=== PATIENT | male | born 1965 | race Caucasian/White ===

== ENCOUNTER 2016-09-29 12:04 | Emergency (ER) | payer SELFPAY ==
[2016-09-29] MEDS ORDERED: Sodium Chloride 0.9% 10 ML Syringe FLUSH PRN (12:17)
[2016-09-29] MEDS ORDERED: Aspirin 81 MG Tab.Chew PO ONE (12:17)
[2016-09-29] MEDS ORDERED: Tenecteplase 50 MG Kit ONE (12:36)
[2016-09-29] MEDS ORDERED: Heparin Sodium 5,000 Units/ML Vial IVPUSH ONE (12:39)
[2016-09-29] MEDS ORDERED: Morphine 2 MG/ML Syringe IVPUSH ONE (12:41)
[2016-09-29] MEDS ORDERED: Heparin Sodium/D5W 25,000 UNITS/500 ML BAG IV SCH (12:45)
[2016-09-29] MEDS ORDERED: Tenecteplase 50 MG Kit IV ONE (12:46)
--- NOTE | 2016-09-29 12:48 | EDM.PDOC ---
ED HPI GENERAL MEDICAL PROBLEM - General Chief Complaint: Respiratory Problem Stated Complaint: SOB Time Seen by Provider: 09/29/16 12:09 Source of Information: Reports: Patient History Limitations: Reports: No Limitations - History of Present Illness INITIAL COMMENTS - FREE TEXT/NARRATIVE: The patient presents with shortness of breath and chest tightness. This all started yesterday. It would come and go but today just prior to arriving at the ER. The pain was constant and he got lightheaded and nearly passed out. He has 7/10 pain now. He has no history of heart problems. He does smoke. He has no history of HTN, hypercholesterolemia, or diabetes. He denies fever, chills or cough. Onset: Gradual Duration: Day(s): (Yesterday on and off but constant now) Location: Reports: Chest Quality: Reports: Other (Tightness) Severity: Moderate Improves with: Reports: None Worsens with: Reports: None Associated Symptoms: Reports: Chest Pain, Shortness of Breath. Denies: Cough, Fever/Chills, Nausea/Vomiting Chest Pain Score (Numeric/FACES): 8 - Related Data Allergies Allergy/AdvReac Type Severity Reaction Status Date / Time Penicillins Allergy Other Verified 09/29/16 12:13 Home Meds: Home Meds . [Unable to Verify Home Med List] 09/29/16 [History] Past Medical History - Past Health History Medical/Surgical History: Denies Medical/Surgical History Social & Family History - Tobacco Use Smoking Status *Q: Current Every Day Smoker Years of Tobacco use: 35 Packs/Tins Daily: 1 - Caffeine Use Caffeine Use: Reports: Coffee, Soda - Recreational Drug Use Recreational Drug Use: No ED ROS GENERAL - Review of Systems Review Of Systems: See Below Constitutional: Reports: No Symptoms HEENT: Reports: No Symptoms Respiratory: Reports: Shortness of Breath Cardiovascular: Reports: Chest Pain Endocrine: Reports: No Symptoms GI/Abdominal: Reports: No Symptoms : Reports: No Symptoms Musculoskeletal: Reports: No Symptoms Skin: Reports: No Symptoms Neurological: Reports: No Symptoms ED EXAM, GENERAL - Physical Exam Exam: See Below Exam Limited By: No Limitations General Appearance: Alert, No Apparent Distress Ears: Normal External Exam Nose: Normal Inspection Head: Atraumatic, Normocephalic Neck: Normal Inspection Respiratory/Chest: No Respiratory Distress, Lungs Clear, Normal Breath Sounds Cardiovascular: Regular Rate, Rhythm, No Edema, No Murmur GI/Abdominal: Soft, Non-Tender, No Organomegaly, No Mass Back Exam: Normal Inspection EKG INTERPRETATION EKG Date: 09/29/16 Time: 12:26 Rhythm: other (sinus bradycardia) Rate (beats/min): 51 [place]: normal P-wave: present QRS: normal ST-T: elevated (inferior leads with depression in the anterior leads) QT: normal Course - Vital Signs Last Recorded V/S: Last Vital Signs Temp 96.3 F 09/29/16 12:09 Pulse 53 L 09/29/16 12:09 Resp 18 09/29/16 12:09 BP 152/92 H 09/29/16 12:09 Pulse Ox 100 09/29/16 12:09 - Orders/Labs/Meds Orders: Active Orders 24 hr Category Date Time Status Cardiac Monitoring [RC] . DIRECTED Care 09/29/16 12:17 Active EKG Documentation Completion [RC] STAT Care 09/29/16 12:18 Active Oxygen Therapy [RC] PRN Care 09/29/16 12:17 Active Peripheral IV Care [RC] . DIRECTED Care 09/29/16 12:18 Active Chest 1V Frontal [CR] Stat Exams 09/29/16 12:18 Taken CBC W/O DIFF,HEMOGRAM [HEME] MOTH@0700 Lab 09/30/16 07:00 Ordered CBC W/O DIFF,HEMOGRAM [HEME] MOTH@0700 Lab 10/03/16 07:00 Ordered CBC W/O DIFF,HEMOGRAM [HEME] MOTH@0700 Lab 10/07/16 07:00 Ordered CBC W/O DIFF,HEMOGRAM [HEME] MOTH@0700 Lab 10/10/16 07:00 Ordered CBC W/O DIFF,HEMOGRAM [HEME] MOTH@0700 Lab 10/14/16 07:00 Ordered CBC W/O DIFF,HEMOGRAM [HEME] MOTH@0700 Lab 10/17/16 07:00 Ordered D-DIMER QUANTITATIVE [COAG] Stat Lab 09/29/16 12:25 Received Heparin Sodium/D5W [Heparin 25,000 Units in D5W 500 ML] Med 09/29/16 12:45 Active 25,000 units in 500 ml IV TITRATE Sodium Chloride 0.9% [Saline Flush] Med 09/29/16 12:17 Active 10 ml FLUSH ASDIRECTED PRN Peripheral IV Insertion Adult [OM.PC] Stat Oth 09/29/16 12:17 Ordered Medication Orders Heparin Sodium/Dextrose (Heparin 25,000 Units In D5w 500 Ml) 25,000 units in 500 mls @ 19.051 mls/hr IV TITRATE DANIEL; 15 UNITS/KG/HR PRN Reason: Protocol Sodium Chloride (Saline Flush) 10 ml FLUSH ASDIRECTED PRN PRN Reason: Keep Vein Open Last Admin: 09/29/16 12:49 Dose: 10 ml Labs: Laboratory Tests 09/29/16 09/29/16 Range/Units 12:25 12:25 WBC 13.93 H (4.23-9.07) K/mm3 RBC 5.53 (4.63-6.08) M/mm3 Hgb 17.0 (13.7-17.5) gm/L Hct 51.0 (40.1-51.0) % MCV 92.2 (79.0-92.2) fl MCH 30.7 (25.7-32.2) pg MCHC 33.3 (32.2-35.5) g/dl RDW Std Deviation 48.2 H (35.1-43.9) fL Plt Count 342 H (163-337) K/mm3 MPV 9.2 L (9.4-12.3) fl Neut % (Auto) 63.1 (34.0-67.9) % Lymph % (Auto) 26.2 (21.8-53.1) % [place] % (Auto) 7.5 (5.3-12.2) % Eos % (Auto) 2.2 (0.8-7.0) Baso % (Auto) 0.6 (0.1-1.2) % Neut # (Auto) 8.80 H (1.78-5.38) K/mm3 Lymph # (Auto) 3.65 H (1.32-3.57) K/mm3 [place] # (Auto) 1.05 H (0.30-0.82) K/mm3 Eos # (Auto) 0.30 (0.04-0.54) K/mm3 Baso # (Auto) 0.08 (0.01-0.08) K/mm3 Sodium 145 (136-145) mEq/L Potassium 4.0 (3.5-5.1) mEq/L Chloride 107 (98-107) mEq/L Carbon Dioxide 29 (21-32) mEq/L Anion Gap 13.0 (5-15) BUN 12 (7-18) mg/dL Creatinine 1.2 (0.7-1.3) mg/dL Est Cr Clr Drug Dosing 64.77 mL/min Estimated GFR (MDRD) > 60 (>60) mL/min BUN/Creatinine Ratio 10.0 L (14-18) Glucose 131 H (74-106) mg/dL Calcium 8.8 (8.5-10.1) mg/dL Total Bilirubin 0.3 (0.2-1.0) mg/dL AST 31 (15-37) U/L ALT 32 (16-63) U/L Alkaline Phosphatase 46 (46-116) U/L Troponin I 0.806 H* (0.00-0.056) ng/mL Total Protein 7.8 (6.4-8.2) g/dl Albumin 4.0 (3.4-5.0) g/dl Globulin 3.8 gm/dL Albumin/Globulin Ratio 1.1 (1-2) Meds: Medications Generic Name Dose Route Start Last Admin Trade Name Freq PRN Reason Stop Dose Admin Heparin Sodium/Dextrose 25,000 units in 500 mls @ 19.051 mls/hr 09/29/16 12: 45 Heparin 25,000 Units In D5w 500 Ml IV TITRATE DANIEL Protocol 15 UNITS/KG/HR Sodium Chloride 10 ml 09/29/16 12:17 09/29/16 12:49 Saline Flush FLUSH 10 ml ASDIRECTED PRN Administration Keep Vein Open Discontinued Medications Generic Name Dose Route Start Last Admin Trade Name Freq PRN Reason Stop Dose Admin Aspirin 324 mg 09/29/16 12:17 09/29/16 12:43 Aspirin PO 09/29/16 12:18 324 mg ONETIME ONE Administration Heparin Sodium (Porcine) 5,000 units 09/29/16 12:39 Heparin Sodium IVPUSH 09/29/16 12:40 ONETIME ONE Morphine Sulfate 2 mg 09/29/16 12:41 Morphine IVPUSH 09/29/16 12:42 ONETIME ONE Tenecteplase Confirm 09/29/16 12:36 Tnkase Administered 09/29/16 12:37 Dose 50 mg .ROUTE .[facility] - Re-Assessments/Exams Free Text/Narrative Re-Assessment/Exam: 09/29/16 12:52 His EKG shows a STEMI in the inferior leads with reciprocal changes in the anterior leads. I ordered an IV saline lock, TnKase per weight based protocol, heparin bolus and heparin drip and morphine 2mg IV. He also got aspirin on arrival 324mg. I did not order nitro at this time. 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 His CXR looks good. I called [facility] in [place] and Dr Lynn accepted the patient. 09/29/16 13:05 His WBC is elevated at 13.93. His D-dimer is negative. His troponin is elevated at 0.806. Departure - Departure Time of Disposition: 13:10 Disposition: DC/Tfer to Acute Hospital 02 Condition: serious Clinical Impression: STEMI (ST elevation myocardial infarction) Qualifiers: Involved coronary artery: right coronary artery Qualified Code(s): I21.11 - ST elevation (STEMI) myocardial infarction involving right coronary artery - Discharge Information Forms: ED Department Discharge - My Orders Last 24 Hours: My Active Orders 09/29/16 12:17 Cardiac Monitoring [RC] . DIRECTED Oxygen Therapy [RC] PRN Sodium Chloride 0.9% [Saline Flush] 10 ml FLUSH ASDIRECTED PRN Peripheral IV Insertion Adult [OM.PC] Stat 09/29/16 12:18 EKG Documentation Completion [RC] STAT Peripheral IV Care [RC] . DIRECTED Chest 1V Frontal [CR] Stat 09/29/16 12:25 D-DIMER QUANTITATIVE [COAG] Stat 09/29/16 12:45 Heparin Sodium/D5W [Heparin 25,000 Units in D5W 500 ML] 25,000 units in 500 ml IV TITRATE 09/30/16 07:00 CBC W/O DIFF,HEMOGRAM [HEME] MOTH@69910/03/16 07:00 CBC W/O DIFF,HEMOGRAM [HEME] MOTH@69910/07/16 07:00 CBC W/O DIFF,HEMOGRAM [HEME] MOTH@69910/10/16 07:00 CBC W/O DIFF,HEMOGRAM [HEME] MOTH@69910/14/16 07:00 CBC W/O DIFF,HEMOGRAM [HEME] MOTH@0700 10/17/16 07:00 CBC W/O DIFF,HEMOGRAM [HEME] MOTH@0700 - Assessment/Plan Last 24 Hours: My Active Orders 09/29/16 12:17 Cardiac Monitoring [RC] . DIRECTED Oxygen Therapy [RC] PRN Sodium Chloride 0.9% [Saline Flush] 10 ml FLUSH ASDIRECTED PRN Peripheral IV Insertion Adult [OM.PC] Stat 09/29/16 12:18 EKG Documentation Completion [RC] STAT Peripheral IV Care [RC] . DIRECTED Chest 1V Frontal [CR] Stat 09/29/16 12:25 D-DIMER QUANTITATIVE [COAG] Stat 09/29/16 12:45 Heparin Sodium/D5W [Heparin 25,000 Units in D5W 500 ML] 25,000 units in 500 ml IV TITRATE 09/30/16 07:00 CBC W/O DIFF,HEMOGRAM [HEME] MOTH@0700 10/03/16 07:00 CBC W/O DIFF,HEMOGRAM [HEME] MOTH@0700 10/07/16 07:00 CBC W/O DIFF,HEMOGRAM [HEME] MOTH@0700 10/10/16 07:00 CBC W/O DIFF,HEMOGRAM [HEME] MOTH@0700 10/14/16 07:00 CBC W/O DIFF,HEMOGRAM [HEME] MOTH@0700 10/17/16 07:00 CBC W/O DIFF,HEMOGRAM [HEME] MOTH@07
[2016-09-29 14:42] VITALS: BP 127/78
--- NOTE | 2016-09-29 15:32 | CR ---
Chest: Portable view of the chest was obtained. Comparison: No previous study. Heart size and mediastinum are within normal limits. Lungs are clear. Bony structures are grossly intact. Impression: 1. Nothing acute is identified on portable chest x-ray. Diagnostic code #1
== END 2016-09-29 13:10 ==
LOC: JD.ED 12:04
DX: I21.11 ST elevation (STEMI) myocardial infarction involving right coronary artery (principal); F17.210 Nicotine dependence, cigarettes, uncomplicated; Z88.0 Allergy status to penicillin
CPT/HCPCS: 36415; 71010; 80053; 84484; 85025; 85379; 93005; 96374; 96375; 99285; A9270; J1644; J2270; J3101; J7050

== ENCOUNTER 2017-02-26 15:05 | Emergency (ER) | payer SELFPAY ==
[2017-02-26 15:20] VITALS: BP 134/74
[2017-02-26] MEDS ORDERED: Sodium Chloride 0.9% 10 ML Syringe FLUSH PRN (15:42)
[2017-02-26] MEDS ORDERED: Sodium Chloride 0.9% 1,000 ML IV SCH (15:45)
--- NOTE | 2017-02-26 16:22 | CT ---
Head CT Technique: Multiple axial sections through the brain were obtained. Intravenous contrast was not utilized. Comparison: No previous intracranial imaging. Findings: Ventricles along with basal cisterns and sulci over convexities are within normal limits for the patient's age. No abnormal parenchymal densities are seen. No evidence of intracranial hemorrhage. No midline shift or mass effect is seen. Bone window settings were reviewed which shows no acute calvarial abnormality. Visualized sinuses are clear. Impression: 1. Nothing acute is seen on noncontrast head CT study. Diagnostic code #1
--- NOTE | 2017-02-26 16:51 | EDM.PDOC ---
ED HPI GENERAL MEDICAL PROBLEM - General Chief Complaint: Eye Problems Stated Complaint: BLURRED VISION Time Seen by Provider: 02/26/17 15:35 Source of Information: Reports: Patient History Limitations: Reports: No Limitations - History of Present Illness INITIAL COMMENTS - FREE TEXT/NARRATIVE: 51-year-old male presents for evaluation treatment of blurry vision. Patient reports that the episode of blurry vision occurred about an hour prior to arrival in the ER. States the episode lasted 10 minutes. He describes the blurry vision as squiggly, wavy lines in his vision. Reports that it affected both eyes. No double vision. No curtain falling or any change in visual arciniega. He denies any headaches, weakness, change in ambulation, change in speech, numbness, tingling, lightheadedness, dizziness, chest pain, shortness of breath , nausea or vomiting. Patient reports he is not sleeping much due to his work schedule. Patient reports that he does wear glasses and then about 2 years since he has seen an eye doctor. No contacts. Patient reports when the visual changes occurred he was at work. He works in the [employer] and his job is physically demanding. Patient states that he did have an LA in September. He was sent to [place] and he had a stent placed. Currently on Plavix and Crestor. Reports he is taking these as prescribed. - Related Data Allergies Allergy/AdvReac Type Severity Reaction Status Date / Time Penicillins Allergy Other Verified 02/26/17 15:15 Home Meds: Home Meds hydrOXYzine HCl [Atarax] 50 mg PO BEDTIME PRN #12 tablet 02/26/17 [Rx] Past Medical History - Past Health History Medical/Surgical History: Denies Medical/Surgical History Cardiovascular History: Reports: High Cholesterol, LA, Stents Social & Family History - Tobacco Use Smoking Status *Q: Current Every Day Smoker Years of Tobacco use: 30 Packs/Tins Daily: 1 - Caffeine Use Caffeine Use: Reports: Coffee, Soda - Recreational Drug Use Recreational Drug Use: Yes Drug Use in Last 12 Months: No ED ROS GENERAL - Review of Systems Review Of Systems: See Below Constitutional: Reports: Fatigue. Denies: Fever HEENT: Reports: Vision Change (reports an episode of vision change for 10 minutes causing "wavy, squiggly lines"; no double vision, no visual arciniega deficit, vision change involved bothe eyes; now resolved). Denies: Contact Lenses Respiratory: Denies: Shortness of Breath Cardiovascular: Denies: Chest Pain, Lightheadedness GI/Abdominal: Denies: Nausea, Vomiting Neurological: Denies: Dizziness, Headache, Numbness, Syncope, Tingling, Trouble Speaking, Difficulty Walking, Weakness, Change in Speech, Gait Disturbance ED EXAM GENERAL W FULL EYE - Physical Exam Exam: See Below Exam Limited By: No Limitations General Appearance: Alert, WD/WN, No Apparent Distress Eye Exam: Bilateral Eye: Normal Inspection, PERRL Eyelids: Bilateral: Normal Appearance Conjunctiva & Sclera: Bilateral: Normal Appearance Cornea Exam: Bilateral: Normal Appearance Extraocular Movements: Bilateral: Intact Pupils: Normal Accommodation Pupillary Size: Bilateral: 5 mm Pupillary Reaction: Bilateral: Brisk Anterior Chamber: Bilateral: Normal Appearance Posterior Chamber: Bilateral: Normal Funduscopic Ears: Normal External Exam, Normal Canal, Hearing Grossly Normal, Normal TMs Nose: Normal Inspection Throat/Mouth: Normal Inspection, Normal Lips, Normal Voice, No Airway Compromise Head: Atraumatic, Normocephalic Neck: Normal Inspection Respiratory/Chest: No Respiratory Distress, Lungs Clear, Normal Breath Sounds Cardiovascular: Normal Peripheral Pulses, Regular Rate, Rhythm, No Murmur Neurological: Alert, Oriented, CN II-XII Intact, Normal Cognition, Normal Gait, Other (normal heel to downs testing, normal finger to nose testing, supervisor special services 5/5 bilaterally, dorsiflexion 5/5 bilaterally, plantarflexion 5/5 bilaterally) Psychiatric: Normal Affect, Normal Mood Skin Exam: Warm, Dry, Normal Color EKG INTERPRETATION EKG Date: 02/26/17 Time: 15:45 Rhythm: NSR Rate (Beats/Min): 63 [place]: Normal P-Wave: Present QRS: Normal ST-T: Normal QT: Normal EKG Interpretation Comments: NSR at 63 bpm. No acute changes. Reviewed by myself and Dr. Varela. Course - Vital Signs Last Recorded V/S: Last Vital Signs Temp 36.8 C 02/26/17 15:16 Pulse 80 02/26/17 15:16 Resp BP 134/74 02/26/17 15:16 Pulse Ox 100 02/26/17 15:16 - Orders/Labs/Meds Orders: Active Orders 24 hr Category Date Time Status Blood Glucose Check, Bedside [RC] ONETIME Care 02/26/17 15:42 Active EKG 12 Lead [EKG Documentation Completion] [RC] STAT Care 02/26/17 15:42 Active Peripheral IV Care [RC] . DIRECTED Care 02/26/17 15:42 Active Visual Acuity [Vision Test] [RC] ASDIRECTED Care 02/26/17 15:43 Active Peripheral IV Insertion Adult [OM.PC] Routine Oth 02/26/17 15:42 Ordered Labs: Laboratory Tests 02/26/17 02/26/17 02/26/17 Range/Units 16:05 16:05 16:05 WBC 7.65 (4.23-9.07) K/mm3 RBC 4.79 (4.63-6.08) M/mm3 Hgb 14.7 (13.7-17.5) gm/L Hct 44.1 (40.1-51.0) % MCV 92.1 (79.0-92.2) fl MCH 30.7 (25.7-32.2) pg MCHC 33.3 (32.2-35.5) g/dl RDW Std Deviation 45.2 H (35.1-43.9) fL Plt Count 228 (163-337) K/mm3 MPV 9.3 L (9.4-12.3) fl Neut % (Auto) 64.4 (34.0-67.9) % Lymph % (Auto) 22.9 (21.8-53.1) % [place] % (Auto) 8.8 (5.3-12.2) % Eos % (Auto) 3.0 (0.8-7.0) Baso % (Auto) 0.8 (0.1-1.2) % Neut # (Auto) 4.93 (1.78-5.38) K/mm3 Lymph # (Auto) 1.75 (1.32-3.57) K/mm3 [place] # (Auto) 0.67 (0.30-0.82) K/mm3 Eos # (Auto) 0.23 (0.04-0.54) K/mm3 Baso # (Auto) 0.06 (0.01-0.08) K/mm3 PT 10.4 (8.0-13.0) SECONDS INR 0.96 APTT 28 (22-36) SECONDS Sodium 143 (136-145) mEq/L Potassium 3.7 (3.5-5.1) mEq/L Chloride 105 (98-107) mEq/L Carbon Dioxide 28 (21-32) mEq/L Anion Gap 13.7 (5-15) BUN 12 (7-18) mg/dL Creatinine 0.9 (0.7-1.3) mg/dL Est Cr Clr Drug Dosing 86.37 mL/min Estimated GFR (MDRD) > 60 (>60) mL/min BUN/Creatinine Ratio 13.3 L (14-18) Glucose 98 (74-106) mg/dL POC Glucose (70-105) mg/dL Hemoglobin A1c (4.50-6.20) % Calcium 9.1 (8.5-10.1) mg/dL Total Bilirubin 0.2 (0.2-1.0) mg/dL AST 25 (15-37) U/L ALT 29 (16-63) U/L Alkaline Phosphatase 42 L (46-116) U/L C-Reactive Protein < 0.2 (<1.0) mg/dL Total Protein 7.0 (6.4-8.2) g/dl Albumin 4.0 (3.4-5.0) g/dl Globulin 3.0 gm/dL Albumin/Globulin Ratio 1.3 (1-2) TSH 3rd Generation 1.135 (0.358-3.74) uIU/mL Urine Color (Yellow) Urine Appearance (Clear) Urine pH (5.0-8.0) Ur Specific [place] (1.005-1.030) Urine Protein (Negative) Urine Glucose (UA) (Negative) Urine Ketones (Negative) Urine Occult Blood (Negative) Urine Nitrite (Negative) Urine Bilirubin (Negative) Urine Urobilinogen (0.2-1.0) Ur Leukocyte Esterase (Negative) 02/26/17 02/26/17 02/26/17 Range/Units 16:05 16:17 16:22 WBC (4.23-9.07) K/mm3 RBC (4.63-6.08) M/mm3 Hgb (13.7-17.5) gm/L Hct (40.1-51.0) % MCV (79.0-92.2) fl MCH (25.7-32.2) pg MCHC (32.2-35.5) g/dl RDW Std Deviation (35.1-43.9) fL Plt Count (163-337) K/mm3 MPV (9.4-12.3) fl Neut % (Auto) (34.0-67.9) % Lymph % (Auto) (21.8-53.1) % [place] % (Auto) (5.3-12.2) % Eos % (Auto) (0.8-7.0) Baso % (Auto) (0.1-1.2) % Neut # (Auto) (1.78-5.38) K/mm3 Lymph # (Auto) (1.32-3.57) K/mm3 [place] # (Auto) (0.30-0.82) K/mm3 Eos # (Auto) (0.04-0.54) K/mm3 Baso # (Auto) (0.01-0.08) K/mm3 PT (8.0-13.0) SECONDS INR APTT (22-36) SECONDS Sodium (136-145) mEq/L Potassium (3.5-5.1) mEq/L Chloride (98-107) mEq/L Carbon Dioxide (21-32) mEq/L Anion Gap (5-15) BUN (7-18) mg/dL Creatinine (0.7-1.3) mg/dL Est Cr Clr Drug Dosing mL/min Estimated GFR (MDRD) (>60) mL/min BUN/Creatinine Ratio (14-18) Glucose (74-106) mg/dL POC Glucose 83 (70-105) mg/dL Hemoglobin A1c 5.60 (4.50-6.20) % Calcium (8.5-10.1) mg/dL Total Bilirubin (0.2-1.0) mg/dL AST (15-37) U/L ALT (16-63) U/L Alkaline Phosphatase (46-116) U/L C-Reactive Protein (<1.0) mg/dL Total Protein (6.4-8.2) g/dl Albumin (3.4-5.0) g/dl Globulin gm/dL Albumin/Globulin Ratio (1-2) TSH 3rd Generation (0.358-3.74) uIU/mL Urine Color Yellow (Yellow) Urine Appearance Clear (Clear) Urine pH 6.0 (5.0-8.0) Ur Specific [place] 1.025 (1.005-1.030) Urine Protein Negative (Negative) Urine Glucose (UA) Negative (Negative) Urine Ketones Negative (Negative) Urine Occult Blood Negative (Negative) Urine Nitrite Negative (Negative) Urine Bilirubin Negative (Negative) Urine Urobilinogen 0.2 (0.2-1.0) Ur Leukocyte Esterase Negative (Negative) Meds: Medications Discontinued Medications Generic Name Dose Route Start Last Admin Trade Name Freq PRN Reason Stop Dose Admin Sodium Chloride 1,000 mls @ 125 mls/hr 02/26/17 15:45 02/26/17 16:14 Normal Saline IV 125 mls/hr ASDIRECTED DANIEL Administration Sodium Chloride 10 ml 02/26/17 15:42 02/26/17 16:05 Saline Flush FLUSH 10 ml ASDIRECTED PRN Administration Keep Vein Open - Radiology Interpretation Free Text/Narrative:: CT of the head without contrast impression per Dr. Sanchez: Nothing acute is seen on noncontrast head CT study. - Re-Assessments/Exams Free Text/Narrative Re-Assessment/Exam: 02/26/17 17:[address], EKG and lab results with the patient. Possibly having a visual migraine causing his symptoms. I will have him follow up with an skilled laborer for a full funduscopic evaluation. Patient is anxious to leave at this point. We will discharge him home. Discharge instructions as documented. Departure - Departure Time of Disposition: 17:56 Disposition: Home, Self-Care 01 Condition: Fair Clinical Impression: Vision blurring, Exhaustion, Insomnia - Discharge Information Prescriptions: hydrOXYzine HCl [Atarax] 50 mg PO BEDTIME PRN #12 tablet PRN Reason: Insomnia Instructions: Blurred Vision, Fatigue, Insomnia Referrals: PCP,None [Primary Care Provider] - Forms: ED Department Discharge Additional Instructions: Rest. make sure you are drinking plenty fluids. Recommend follow-up with an eye doctor this week or next week for recheck of your symptoms. Recommend establishing with family medicine or internal medicine. If you need a provider in [place] recommend Dr. Kennedy or Dr. Monet. Please call schedule with one of these providers. Please return to the ER if your symptoms change or worsen. - My Orders Last 24 Hours: My Active Orders 02/26/17 15:42 Blood Glucose Check, Bedside [RC] ONETIME EKG 12 Lead [EKG Documentation Completion] [RC] STAT Peripheral IV Care [RC] . DIRECTED Peripheral IV Insertion Adult [OM.PC] Routine 02/26/17 15:43 Visual Acuity [Vision Test] [RC] ASDIRECTED - Assessment/Plan Last 24 Hours: My Active Orders 02/26/17 15:42 Blood Glucose Check, Bedside [RC] ONETIME EKG 12 Lead [EKG Documentation Completion] [RC] STAT Peripheral IV Care [RC] . DIRECTED Peripheral IV Insertion Adult [OM.PC] Routine 02/26/17 15:43 Visual Acuity [Vision Test] [RC] ASDIRECTED
== END 2017-02-26 18:12 | disposition home or self-care (01) ==
LOC: JD.ED 15:05
DX: H53.8 Other visual disturbances (principal); R53.83 Other fatigue; G47.00 Insomnia, unspecified; Z88.0 Allergy status to penicillin; E78.00 Pure hypercholesterolemia, unspecified; I25.2 Old myocardial infarction; Z95.5 Presence of coronary angioplasty implant and graft; F17.210 Nicotine dependence, cigarettes, uncomplicated
CPT/HCPCS: 36415; 70450; 80053; 81003; 82962; 83036; 84443; 85025; 85610; 85730; 86140; 93005; 96360; 96361; 99284; J7040; J7050; 93010

== ENCOUNTER 2017-03-29 11:37 | Emergency (ER) | payer SELFPAY ==
[2017-03-29 11:51] VITALS: BP 140/86
[2017-03-29] MEDS ORDERED: Tetracaine HCl/PF 0.5% 4 ML Bottle EYEBOTH ONE (11:51)
[2017-03-29] MEDS ORDERED: Erythromycin Base 0.5% Ophth Oint 1 GM Tube EYEBOTH ONE (11:51)
--- NOTE | 2017-03-29 12:50 | EDM.PDOC ---
ED HPI GENERAL MEDICAL PROBLEM - General Chief Complaint: ENT Problem Stated Complaint: BLURRED VISION Time Seen by Provider: 03/29/17 11:46 Source of Information: Reports: Patient History Limitations: Reports: No Limitations - History of Present Illness INITIAL COMMENTS - FREE TEXT/NARRATIVE: The patient is a 51-year-old male with a chief complaint of vision changes. He states that he was seen here a month ago for floaters in his vision. His symptoms had resolved upon arrival to the emergency department. He was told to follow-up with an eye doctor but was unable to do to work concerns. He returns today with similar symptoms again. He also states that he had had some pain in both of his eyes that felt like sand was in his eyes last evening. 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 He was not wearing welding goggles. He was wearing safety goggles. States his eye pain is now improved. States his vision is back to normal now. He has no blurry vision or pain in his vision. He is worried because he had a heart attack earlier this year and is worried that his vision changes could be a sign of something going on with his heart. He is not complaining of chest pain or shortness of breath. Bilateral Eye Pain Score (Numeric/FACES): 1 - Related Data Allergies Allergy/AdvReac Type Severity Reaction Status Date / Time Penicillins Allergy Other Verified 03/29/17 11:51 Home Meds: Home Meds Clopidogrel [Plavix] 75 mg PO DAILY 03/29/17 [History] Past Medical History - Past Health History Medical/Surgical History: Denies Medical/Surgical History Cardiovascular History: Reports: High Cholesterol, [place], Stents Social & Family History - Family History Respiratory: Reports: COPD - Tobacco Use Smoking Status *Q: Current Every Day Smoker Years of Tobacco use: 30 Packs/Tins Daily: 1 Second Hand Smoke Exposure: Yes - Caffeine Use Caffeine Use: Reports: Coffee - Recreational Drug Use Recreational Drug Use: No Drug Use in Last 12 Months: No ED ROS ENT - Review of Systems Review Of Systems: See Below Constitutional: Reports: No Symptoms HEENT: Reports: Eye Pain. Denies: Eye Discharge Respiratory: Reports: No Symptoms Cardiovascular: Reports: No Symptoms Neurological: Reports: No Symptoms ED EXAM, ENT - Physical Exam Exam: See Below Exam Limited By: No Limitations General Appearance: Alert, WD/WN, No Apparent Distress, Anxious Eye Exam: Bilateral Eye: EOMI, Normal Inspection, PERRL, Other (No periorbital changes. No foreign body. Fluorescein exam is negative for corneal abrasion. Normal exam.) Ears: Normal External Exam Nose: Normal Inspection Mouth/Throat: Normal Inspection Head: Atraumatic, Normocephalic Neck: Normal Inspection Respiratory/Chest: No Respiratory Distress Neurological: Alert, Oriented, CN II-XII Intact, Normal Cognition, No Motor/ Sensory Deficits Psychiatric: Normal Affect, Normal Mood Course - Vital Signs Last Recorded V/S: Last Vital Signs Temp 36.5 C 03/29/17 11:48 Pulse 83 03/29/17 11:48 Resp 18 03/29/17 11:48 BP 140/86 03/29/17 11:48 Pulse Ox 98 03/29/17 11:48 - Orders/Labs/Meds Meds: Medications Discontinued Medications Generic Name Dose Route Start Last Admin Trade Name Freq PRN Reason Stop Dose Admin Erythromycin 1 gm 03/29/17 11:51 03/29/17 12:00 Erythromycin 0.5% Ophth Oint EYEBOTH 03/29/17 11:52 1 gm ONETIME ONE Administration Tetracaine HCl 0.5 ml 03/29/17 11:51 03/29/17 12:02 Tetracaine 0.5% Steri-Unit Taryn EYEBOTH 03/29/17 11:52 0.5 ml ASDIRECTED ONE Administration - Re-Assessments/Exams Free Text/Narrative Re-Assessment/Exam: 03/29/17 13:00 Patient's ocular symptoms again resolved upon arrival. He may have a mild case of a welders UV light injury. However his symptoms are already improved. There is no corneal abrasion. Meanwhile, the flashers and floaters that he sees our not likely related to an emergency condition. We discussed this at length. I do not think that these visual symptoms are related to his prior history of heart attack. We discussed this at length. I reassured him. He will follow up with the primary doctor and an eye doctor as soon as possible. Departure - Departure Time of Disposition: 12:47 Disposition: Home, Self-Care 01 Clinical Impression: Visual changes - Discharge Information Instructions: Visual Disturbances Referrals: PCP,None [Primary Care Provider] - Forms: ED Department Discharge Additional Instructions: 1. Follow up with the primary care doctor of your choice as soon as possible. Call [phone] if you'd like to schedule here. 2. Follow up with the eye doctor of your choice as soon as possible. Some recommended options include Dr. Kay [phone], Dr. Navarrete [phone], and Dr. Camacho [phone]
== END 2017-03-29 12:56 | disposition home or self-care (01) ==
LOC: JD.ED 11:37
DX: H53.9 Unspecified visual disturbance (principal); Z88.0 Allergy status to penicillin; Z79.899 Other long term (current) drug therapy; F17.210 Nicotine dependence, cigarettes, uncomplicated
CPT/HCPCS: 99283; A9270; 99282

== ENCOUNTER 2017-05-04 23:04 | Emergency (ER) | payer SELFPAY ==
[2017-05-04 23:16] VITALS: BP 146/82
--- NOTE | 2017-05-05 00:55 | EDM.PDOC ---
ED HPI GENERAL MEDICAL PROBLEM - General Chief Complaint: Chest Pain Stated Complaint: SHORTNESS OF BREATH Time Seen by Provider: 05/05/17 00:10 Source of Information: Reports: Patient, Family () History Limitations: Reports: No Limitations - History of Present Illness INITIAL COMMENTS - FREE TEXT/NARRATIVE: The patient states that he developed upper abdominal tightness around 21:30 tonight. It came on gradually. He states that he had some dyspnea, and felt anxious. He did not have any diaphoresis, nausea, or vomiting. No recent fever. No recent urinary symptoms. The patient states that he chronically has an occasional skipped beat, but no new palpitations. The patient is concerned about tonight's symptoms because he suffered a STEMI on 09/29/2016, and at that time, he presented with the same upper abdominal tightness, along with dyspnea, nausea, diaphoresis, and anxiety. He went on to have a stent to the RCA. He was started on Crestor, Plavix, and aspirin, which he still takes. Here in the ED, the patient feels back to normal. The patient does not have a PCP. Chest Pain Score (Numeric/FACES): 5 - Related Data Allergies Allergy/AdvReac Type Severity Reaction Status Date / Time Penicillins Allergy Other Verified 05/04/17 23:16 Home Meds: Home Meds Clopidogrel [Plavix] 75 mg PO DAILY 03/29/17 [History] Crestor. 1 tab PO DAILY 05/04/17 [History] Milk Thistle 1 tab PO DAILY 05/04/17 [History] Multivitamin [Multivitamins] 1 tab PO DAILY 05/04/17 [History] Past Medical History Cardiovascular History: Reports: CAD, High Cholesterol, [place] - Past Surgical History Cardiovascular Surgical History: Reports: Coronary Artery Stent (RCA 09/29/2016) Musculoskeletal Surgical History: Reports: Other (See Below) Other Musculoskeletal Surgeries/Procedures:: wrist surgery Social & Family History - Family History Respiratory: Reports: COPD - Tobacco Use Smoking Status *Q: Current Every Day Smoker Years of Tobacco use: 30 Packs/Tins Daily: 1 Second Hand Smoke Exposure: Yes - Caffeine Use Caffeine Use: Reports: Coffee, Soda - Recreational Drug Use Recreational Drug Use: No Drug Use in Last 12 Months: No ED ROS GENERAL - Review of Systems Review Of Systems: See Below Constitutional: Reports: No Symptoms HEENT: Reports: No Symptoms Respiratory: Reports: No Symptoms Cardiovascular: Reports: No Symptoms Endocrine: Reports: No Symptoms GI/Abdominal: Reports: No Symptoms : Reports: No Symptoms Musculoskeletal: Reports: No Symptoms Skin: Reports: No Symptoms Neurological: Reports: No Symptoms Psychiatric: Reports: No Symptoms Hematologic/Lymphatic: Reports: No Symptoms Immunologic: Reports: No Symptoms ED EXAM, GENERAL - Physical Exam Exam: See Below Exam Limited By: No Limitations General Appearance: Alert, WD/WN, No Apparent Distress Eye Exam: Bilateral Eye: Normal Inspection Ears: Normal External Exam, Hearing Grossly Normal Nose: Normal Inspection, No Blood Throat/Mouth: Normal Inspection, Normal Lips, Normal Voice, No Airway Compromise Head: Atraumatic, Normocephalic Neck: Normal Inspection, Full Range of Motion Respiratory/Chest: No Respiratory Distress, Lungs Clear, Normal Breath Sounds, No Accessory Muscle Use Cardiovascular: Normal Peripheral Pulses, Regular Rate, Rhythm, No Gallop, No JVD, No Murmur, No Rub Peripheral Pulses: 4+: Radial (L), Radial (R) GI/Abdominal: Normal Bowel Sounds, Soft, Non-Tender, No Organomegaly, No Distention, No Abnormal Bruit, No Mass (Male) Exam: Deferred Rectal (Males) Exam: Deferred Back Exam: Normal Inspection, Full Range of Motion, NT Extremities: Normal Inspection, Normal Range of Motion, No Pedal Edema, Normal Capillary Refill Neurological: Alert, Oriented, Normal Cognition, No Motor/Sensory Deficits Psychiatric: Normal Affect Skin Exam: Warm, Dry, Intact, Normal Color, No Rash EKG INTERPRETATION EKG Date: 05/04/17 Time: 23:10 Rhythm: NSR Rate (Beats/Min): 68 [place]: Normal P-Wave: Present QRS: Normal ST-T: Depressed (slight, inferior leads) QT: Normal Comparison: No Change (02/26/2017) Course - Vital Signs Last Recorded V/S: Last Vital Signs Temp 36.6 C 05/04/17 23:11 Pulse 81 05/04/17 23:11 Resp 18 05/04/17 23:11 BP 146/82 H 05/04/17 23:11 Pulse Ox 97 05/04/17 23:11 - Orders/Labs/Meds Labs: Laboratory Tests 05/04/17 05/04/17 05/04/17 Range/Units 23:00 23:00 23:50 WBC 12.18 H (4.23-9.07) K/mm3 RBC 5.12 (4.63-6.08) M/mm3 Hgb 16.0 (13.7-17.5) gm/L Hct 47.4 (40.1-51.0) % MCV 92.6 H (79.0-92.2) fl MCH 31.3 (25.7-32.2) pg MCHC 33.8 (32.2-35.5) g/dl RDW Std Deviation 45.4 H (35.1-43.9) fL Plt Count 238 (163-337) K/mm3 MPV 9.4 (9.4-12.3) fl Neut % (Auto) Cancelled Lymph % (Auto) Cancelled [place] % (Auto) Cancelled Eos % (Auto) Cancelled Baso % (Auto) Cancelled Neut # (Auto) Cancelled Lymph # (Auto) Cancelled [place] # (Auto) Cancelled Eos # (Auto) Cancelled Baso # (Auto) Cancelled Neutrophils % (Manual) 57 (40-60) % Band Neutrophils % 0 (0-10) % Lymphocytes % (Manual) 35 (20-40) % Monocytes % (Manual) 6 (2-10) % Eosinophils % (Manual) 2 (0.8-7.0) % Basophils % (Manual) 0 L (0.2-1.2) Manual Slide Review Cancelled Platelet Estimate Adequate RBC Morph Comment Normal PT 10.3 (8.0-13.0) SECONDS INR 0.95 APTT 26 (22-36) SECONDS D-Dimer, Quantitative < 0.19 L (0.19-0.59) mg/L Sodium 142 (136-145) mEq/L Potassium 3.6 (3.5-5.1) mEq/L Chloride 105 (98-107) mEq/L Carbon Dioxide 30 (21-32) mEq/L Anion Gap 10.6 (5-15) BUN 19 H (7-18) mg/dL Creatinine 1.0 (0.7-1.3) mg/dL Est Cr Clr Drug Dosing 77.73 mL/min Estimated GFR (MDRD) > 60 (>60) mL/min BUN/Creatinine Ratio 19.0 H (14-18) Glucose 113 H (74-106) mg/dL Calcium 9.4 (8.5-10.1) mg/dL Total Bilirubin 0.3 (0.2-1.0) mg/dL AST 29 (15-37) U/L ALT 40 (16-63) U/L Alkaline Phosphatase 44 L (46-116) U/L Troponin I < 0.017 (0.00-0.056) ng/mL NT-Pro-B Natriuret Pep (0-125) pg/mL Total Protein 7.7 (6.4-8.2) g/dl Albumin 4.2 (3.4-5.0) g/dl Globulin 3.5 gm/dL Albumin/Globulin Ratio 1.2 (1-2) 05/04/17 05/05/17 Range/Units 23:50 02:00 WBC (4.23-9.07) K/mm3 RBC (4.63-6.08) M/mm3 Hgb (13.7-17.5) gm/L Hct (40.1-51.0) % MCV (79.0-92.2) fl MCH (25.7-32.2) pg MCHC (32.2-35.5) g/dl RDW Std Deviation (35.1-43.9) fL Plt Count (163-337) K/mm3 MPV (9.4-12.3) fl Neut % (Auto) Lymph % (Auto) [place] % (Auto) Eos % (Auto) Baso % (Auto) Neut # (Auto) Lymph # (Auto) [place] # (Auto) Eos # (Auto) Baso # (Auto) Neutrophils % (Manual) (40-60) % Band Neutrophils % (0-10) % Lymphocytes % (Manual) (20-40) % Monocytes % (Manual) (2-10) % Eosinophils % (Manual) (0.8-7.0) % Basophils % (Manual) (0.2-1.2) Manual Slide Review Platelet Estimate RBC Morph Comment PT (8.0-13.0) SECONDS INR APTT (22-36) SECONDS D-Dimer, Quantitative (0.19-0.59) mg/L Sodium (136-145) mEq/L Potassium (3.5-5.1) mEq/L Chloride (98-107) mEq/L Carbon Dioxide (21-32) mEq/L Anion Gap (5-15) BUN (7-18) mg/dL Creatinine (0.7-1.3) mg/dL Est Cr Clr Drug Dosing mL/min Estimated GFR (MDRD) (>60) mL/min BUN/Creatinine Ratio (14-18) Glucose (74-106) mg/dL Calcium (8.5-10.1) mg/dL Total Bilirubin (0.2-1.0) mg/dL AST (15-37) U/L ALT (16-63) U/L Alkaline Phosphatase (46-116) U/L Troponin I < 0.017 (0.00-0.056) ng/mL NT-Pro-B Natriuret Pep 68 (0-125) pg/mL Total Protein (6.4-8.2) g/dl Albumin (3.4-5.0) g/dl Globulin gm/dL Albumin/Globulin Ratio (1-2) - Re-Assessments/Exams Free Text/Narrative Re-Assessment/Exam: 05/05/17 00:53 Two-view chest radiograph appears to be grossly normal. Cardiac silhouette is within normal limits. No pulmonary vascular congestion. No pleural effusions. No focal infiltrate. No pneumothorax. Formal read per the Radiologist pending. 05/05/17 02:02 Repeat ECG at 01:52 demonstrates a sinus bradycardia at 57 bpm. There are Q waves in the inferior leads, unchanged from prior ECG. There is T-wave inversion in lead III, on change from prior ECG. No ischemic changes. 05/05/17 02:52 The patient's repeat troponin remains undetectably low. The cause of his upper abdominal discomfort is unclear, but does not appear to be cardiac in etiology. Nevertheless, I would like the patient to follow-up with a Service Director - I will refer him to Dr. Pond. I will also refer him to Dr. Huerta, as a PCP. Departure - Departure Time of Disposition: 02:55 Disposition: Home, Self-Care 01 Condition: Good Clinical Impression: Abdominal pain of unknown etiology - Discharge Information Instructions: Abdominal Pain, Adult, [id number] Referrals: PCP,None [Primary Care Provider] - Onur Pond MD [Resident] - Lisa Huerta [Physician] - Forms: ED Department Discharge Additional Instructions: You were seen in the emergency room for upper abdominal tightness, similar to when you had an DC. Workup in the ER included blood work, 2 ECG's, and a chest x-ray. Your entire workup was unremarkable, and does not explain the cause of your pain. You have not had a heart attack. You do not have pneumonia. You do not have a blood clot in your lungs. You are not suffering from congestive heart failure. We recommend you follow-up with the Service Director Dr. Pond, at the next available appointment. You can follow-up with Dr. Huerta as a primary care physician. If any other problems, please do not hesitate to return to the ER.
--- NOTE | 2017-05-06 15:12 | CR ---
Chest: Two views of the chest are obtained. Comparison: Prior chest x-ray of 05/04/17. Heart size and mediastinum are within normal limits. Lungs are clear. Bony structures are unremarkable. Lungs are slightly hyperinflated. Impression: 1. Slightly hyperinflated lungs. Please correlate if patient is a smoker for this to represent emphysematous change. 2. Nothing acute is otherwise seen on two-view chest x-ray. Diagnostic code #2
== END 2017-05-05 03:06 | disposition home or self-care (01) ==
LOC: JD.ED 23:04
DX: R10.10 Upper abdominal pain, unspecified (principal); E78.00 Pure hypercholesterolemia, unspecified; F17.210 Nicotine dependence, cigarettes, uncomplicated; Z88.0 Allergy status to penicillin; Z79.899 Other long term (current) drug therapy
CPT/HCPCS: 36415; 71020; 71020-26; 80053; 83880; 84484; 85025; 85379; 85610; 85730; 93005; 93010; 99283-25; 99285-25

== ENCOUNTER 2017-05-19 00:12 | Emergency (ER) | payer SELFPAY ==
[2017-05-19] MEDS ORDERED: Sodium Chloride 0.9% 10 ML Syringe FLUSH PRN (00:19)
[2017-05-19] MEDS ORDERED: Nitroglycerin 2% Oint 1 GM UD Packet TOP ONE (00:38)
[2017-05-19] MEDS ORDERED: Aspirin 81 MG Tab.Chew PO ONE (00:38)
--- NOTE | 2017-05-19 01:05 | EDM.PDOC ---
ED HPI GENERAL MEDICAL PROBLEM - General Chief Complaint: Chest Pain Stated Complaint: SOB Time Seen by Provider: 05/19/17 00:19 Source of Information: Reports: Patient, RN Notes Reviewed - History of Present Illness INITIAL COMMENTS - FREE TEXT/NARRATIVE: 52-year-old male comes in with some mild shortness of breath, anterior chest discomfort that starts upper mid abdomen radiating up over anterior chest. Not going into his shoulder or arm or into the back or jaw. However he states this does feel similar to the discomfort he had when he "had an MRI last September about 8 or 9 months ago". He did have similar discomfort a couple of weeks ago and everything did check out okay at that time. He is on aspirin and Plavix and a statin. No nausea vomiting or diaphoresis. No unusual dizziness or lightheadedness. Chest Pain Score (Numeric/FACES): 6 - Related Data Allergies Allergy/AdvReac Type Severity Reaction Status Date / Time Penicillins Allergy Other Verified 05/04/17 23:16 Home Meds: Home Meds Clopidogrel [Plavix] 75 mg PO DAILY 03/29/17 [History] Aspirin [Halfprin] 81 mg PO DAILY 05/19/17 [History] Rosuvastatin [Crestor] 2 mg PO DAILY 05/19/17 [History] Past Medical History - Past Health History Medical/Surgical History: Denies Medical/Surgical History Cardiovascular History: Reports: CAD, High Cholesterol, [place] - Past Surgical History Cardiovascular Surgical History: Reports: Coronary Artery Stent Musculoskeletal Surgical History: Reports: Other (See Below) Other Musculoskeletal Surgeries/Procedures:: wrist surgery Social & Family History - Family History Family Medical History: Noncontributory Respiratory: Reports: COPD - Tobacco Use Smoking Status *Q: Current Every Day Smoker Years of Tobacco use: 30 Packs/Tins Daily: 1 Second Hand Smoke Exposure: Yes - Caffeine Use Caffeine Use: Reports: Coffee, Soda - Recreational Drug Use Recreational Drug Use: No Drug Use in Last 12 Months: No ED ROS GENERAL - Review of Systems Review Of Systems: See Below Constitutional: Denies: Fever, Chills, Diaphoresis HEENT: Denies: Sinus Problem, Throat Pain Respiratory: Reports: Shortness of Breath, Cough (Occasional nonproductive). Denies: Pleuritic Chest Pain Cardiovascular: Reports: Chest Pain (Anterior chest tightness without radiation) GI/Abdominal: Reports: Abdominal Pain. Denies: Nausea (Mild upper mid abdominal discomfort), Vomiting Musculoskeletal: Denies: Neck Pain, Shoulder Pain, Arm Pain, Back Pain Skin: Reports: No Symptoms Neurological: Reports: No Symptoms ED EXAM, GENERAL - Physical Exam Exam: See Below General Appearance: Alert, No Apparent Distress Eye Exam: Bilateral Eye: PERRL Throat/Mouth: Normal Inspection Head: No: Facial Swelling Neck: Supple, Full Range of Motion Respiratory/Chest: No Respiratory Distress, Lungs Clear, Normal Breath Sounds, Other (Mild tenderness left sternal border and left anterior chest). No: Rhonchi, Wheezing Cardiovascular: No Murmur. No: Regular Rate, Rhythm GI/Abdominal: Soft, Non-Tender Extremities: Normal Inspection. No: Pedal Edema, Leg Pain Neurological: Alert, Oriented, No Motor/Sensory Deficits Skin Exam: Warm, Dry, Normal Color EKG INTERPRETATION EKG Date: 05/19/17 Rhythm: NSR [place]: Normal ST-T: Depressed (There is very minimal ST depression Lead II and aVF and also T- wave inversion AVF that looks the same as EKG of 2 weeks ago, 05/04,.) Course - Vital Signs Last Recorded V/S: Last Vital Signs Temp 95.7 F 05/19/17 00:17 Pulse 69 05/19/17 00:17 Resp 14 05/19/17 03:00 BP 106/71 05/19/17 03:00 Pulse Ox 97 05/19/17 03:00 - Orders/Labs/Meds Orders: Active Orders 24 hr Category Date Time Status EKG 12 Lead [EKG Documentation Completion] [RC] STAT Care 05/19/17 00:20 Active Peripheral IV Care [RC] . DIRECTED Care 05/19/17 00:20 Active Chest 1V Frontal [CR] Stat Exams 05/19/17 00:20 Taken Sodium Chloride 0.9% [Saline Flush] Med 05/19/17 00:19 Active 10 ml FLUSH ASDIRECTED PRN Peripheral IV Insertion Adult [OM.PC] Stat Oth 05/19/17 00:20 Ordered Medication Orders Sodium Chloride (Saline Flush) 10 ml FLUSH ASDIRECTED PRN PRN Reason: Keep Vein Open Last Admin: 05/19/17 00:47 Dose: 10 ml Labs: Laboratory Tests 05/19/17 05/19/17 05/19/17 Range/Units 00:30 00:30 03:00 WBC 10.12 H (4.23-9.07) K/mm3 RBC 4.91 (4.63-6.08) M/mm3 Hgb 15.3 (13.7-17.5) gm/L Hct 45.2 (40.1-51.0) % MCV 92.1 (79.0-92.2) fl MCH 31.2 (25.7-32.2) pg MCHC 33.8 (32.2-35.5) g/dl RDW Std Deviation 44.7 H (35.1-43.9) fL Plt Count 235 (163-337) K/mm3 MPV 9.1 L (9.4-12.3) fl Neut % (Auto) 46.8 (34.0-67.9) % Lymph % (Auto) 37.8 (21.8-53.1) % [place] % (Auto) 9.1 (5.3-12.2) % Eos % (Auto) 5.4 (0.8-7.0) Baso % (Auto) 0.7 (0.1-1.2) % Neut # (Auto) 4.73 (1.78-5.38) K/mm3 Lymph # (Auto) 3.83 H (1.32-3.57) K/mm3 [place] # (Auto) 0.92 H (0.30-0.82) K/mm3 Eos # (Auto) 0.55 H (0.04-0.54) K/mm3 Baso # (Auto) 0.07 (0.01-0.08) K/mm3 Sodium 145 (136-145) mEq/L Potassium 3.7 (3.5-5.1) mEq/L Chloride 107 (98-107) mEq/L Carbon Dioxide 26 (21-32) mEq/L Anion Gap 15.7 H (5-15) BUN 20 H (7-18) mg/dL Creatinine 1.0 (0.7-1.3) mg/dL Est Cr Clr Drug Dosing 76.88 mL/min Estimated GFR (MDRD) > 60 (>60) mL/min BUN/Creatinine Ratio 20.0 H (14-18) Glucose 111 H (74-106) mg/dL Calcium 8.6 (8.5-10.1) mg/dL Total Bilirubin 0.2 (0.2-1.0) mg/dL AST 25 (15-37) U/L ALT 36 (16-63) U/L Alkaline Phosphatase 41 L (46-116) U/L Troponin I < 0.017 < 0.017 (0.00-0.056) ng/mL Total Protein 7.2 (6.4-8.2) g/dl Albumin 4.0 (3.4-5.0) g/dl Globulin 3.2 gm/dL Albumin/Globulin Ratio 1.3 (1-2) Meds: Medications Generic Name Dose Route Start Last Admin Trade Name Freq PRN Reason Stop Dose Admin Sodium Chloride 10 ml 05/19/17 00:19 05/19/17 00:47 Saline Flush FLUSH 10 ml ASDIRECTED PRN Administration Keep Vein Open Discontinued Medications Generic Name Dose Route Start Last Admin Trade Name Freq PRN Reason Stop Dose Admin Aspirin 324 mg 05/19/17 00:38 05/19/17 00:47 Aspirin PO 05/19/17 00:39 324 mg ONETIME ONE Administration Nitroglycerin 1 gm 05/19/17 00:38 05/19/17 00:48 Nitro-Bid 2% TOP 05/19/17 00:39 1 gm ONETIME ONE Administration - Re-Assessments/Exams Free Text/Narrative Re-Assessment/Exam: 05/19/17 03:54. Repeat troponin is come back negative. Chest x-ray was good other labs normal. He's remained in sinus rhythm, no no ectopy that I have been made aware of. Discharge instructions as documented Departure - Departure Time of Disposition: 03:50 Disposition: Home, Self-Care 01 Condition: Fair Clinical Impression: Atypical chest pain, Chest wall pain Referrals: PCP,None [Primary Care Provider] - Forms: ED Department Discharge Additional Instructions: Aspirin and other current medications. Try hard to stop smoking that is probably your largest risk factor at this time for heart and other disease. Follow-up with Dr. Valentin or Dr. Monet at our [facility] medical clinic in 1-2 weeks, call [phone] for appointment. Return to ED as needed if symptoms worsening in any way. - My Orders Last 24 Hours: My Active Orders 05/19/17 00:19 Sodium Chloride 0.9% [Saline Flush] 10 ml FLUSH ASDIRECTED PRN 05/19/17 00:20 EKG 12 Lead [EKG Documentation Completion] [RC] STAT Peripheral IV Care [RC] . DIRECTED Chest 1V Frontal [CR] Stat Peripheral IV Insertion Adult [OM.PC] Stat - Assessment/Plan Last 24 Hours: My Active Orders 05/19/17 00:19 Sodium Chloride 0.9% [Saline Flush] 10 ml FLUSH ASDIRECTED PRN 05/19/17 00:20 EKG 12 Lead [EKG Documentation Completion] [RC] STAT Peripheral IV Care [RC] . DIRECTED Chest 1V Frontal [CR] Stat Peripheral IV Insertion Adult [OM.PC] Stat
[2017-05-19 03:06] VITALS: BP 106/71
--- NOTE | 2017-05-19 08:42 | CR ---
Chest: Portable view of the chest was obtained. Comparison: Prior chest x-ray of 05/04/17. Heart size and mediastinum are within normal limits for portable technique. Lungs are clear. Bony structures are grossly intact. Impression: 1. Nothing acute is appreciated on portable chest x-ray. Diagnostic code #1
== END 2017-05-19 03:56 | disposition home or self-care (01) ==
LOC: JD.ED 00:12
DX: R07.89 Other chest pain (principal); F17.210 Nicotine dependence, cigarettes, uncomplicated; I25.10 Atherosclerotic heart disease of native coronary artery without angina pectoris; E78.00 Pure hypercholesterolemia, unspecified; Z95.5 Presence of coronary angioplasty implant and graft; Z79.82 Long term (current) use of aspirin; Z79.02 Long term (current) use of antithrombotics/antiplatelets; Z79.899 Other long term (current) drug therapy; Z88.0 Allergy status to penicillin
CPT/HCPCS: 36415; 71045; 80053; 84484; 85025; 93005; 99285; A9270; J7050; 93010; 99284-25

== ENCOUNTER 2017-09-14 16:12 | Emergency (ER) | payer SELFPAY ==
[2017-09-14] MEDS ORDERED: Sodium Chloride 0.9% 1,000 ML IV SCH (16:30)
--- NOTE | 2017-09-14 16:30 | EDM.PDOC ---
ED HPI GENERAL MEDICAL PROBLEM - General Chief Complaint: Chest Pain Stated Complaint: [facility] Time Seen by Provider: 09/14/17 16:23 Source of Information: Reports: Patient History Limitations: Reports: No Limitations - History of Present Illness INITIAL COMMENTS - FREE TEXT/NARRATIVE: 52-year-old male presents to the ED per ambulance. He states he was sitting when he suddenly developed a fluttering feeling in his chest with associated development of central chest discomfort. He did get up and walk around did not feel dizzy. He did notice that he was more short of breath when this occurred. This event started about an hour ago. When the paramedics arrived he was in sinus tachycardia in the 135 range.patient hasn't drank alcohol for 7 years. He denies taking any form of stimulants. He does not drink energy drinks. He has changed his chewing tobacco and perhaps she is getting more nicotine stimulation from this. He feels more of a buzz when he takes this and is suspicious that he may be getting more nicotine. He also smokes cigarettes. He had a stent placed in his right coronary believe within the last year. He is on Plavix and aspirin and is been very faithful with these medications. Paramedics gave him 3 other baby aspirins chewed en route to the hospital.Upon arrival here his heart rate is in the 80s and he reports he has no chest pain at this time. Chest shortness of breath is also improved. He has no history of arrhythmias.e does not appear to be anxious. Onset: Today Onset Date: 09/14/17 Onset Time: 15:15 Duration: Hour(s): Location: Reports: Chest (central chest pain associated with fluttering for rapid heart rate and something in his chest.associated mild dyspnea.) Quality: Reports: Ache, Pressure Severity: Moderate (Similar to when he had his heart attack) Improves with: Reports: Other (better now with his heart rate in the normal range.) Worsens with: Reports: None Context: Reports: Other (was sitting at the time that he developed his symptoms of racing heart and central chest pain) Associated Symptoms: Reports: No Other Symptoms, Chest Pain, Shortness of Breath. Denies: Confusion, Cough, cough w sputum, Diaphoresis, Fever/Chills, Headaches, Loss of Appetite, Malaise, Nausea/Vomiting, Rash, Seizure (mild), Syncope, Weakness Treatments FUNDER: Reports: Other (see below) (none. Paramedics did give him 3 further baby aspirins chewed.) Chest Pain Score (Numeric/FACES): 2 - Related Data Allergies Allergy/AdvReac Type Severity Reaction Status Date / Time Penicillins Allergy Other Verified 09/14/17 16:15 Home Meds: Home Meds Clopidogrel [Plavix] 75 mg PO DAILY 03/29/17 [History] Aspirin [Halfprin] 81 mg PO DAILY 05/19/17 [History] Rosuvastatin [Crestor] 2 mg PO DAILY 05/19/17 [History] Magnesium Chloride [Slow-Mag] 71.5 mg PO DAILY #10 tablet. 09/14/17 [Rx] Rosuvastatin [Crestor] 5 mg PO DAILY #30 tab 09/14/17 [Rx] Past Medical History - Past Health History Medical/Surgical History: Denies Medical/Surgical History Cardiovascular History: Reports: CAD, High Cholesterol, [place], Stents (has one stent I beght coronary.) - Past Surgical History Cardiovascular Surgical History: Reports: Coronary Artery Stent Musculoskeletal Surgical History: Reports: Other (See Below) Other Musculoskeletal Surgeries/Procedures:: wrist surgery Social & Family History - Family History Family Medical History: Noncontributory Respiratory: Reports: COPD - Caffeine Use Caffeine Use: Reports: Coffee, Soda - Living Situation & Occupation Living situation: Reports: Single Occupation: Employed ED ROS GENERAL - Review of Systems Review Of Systems: See Below Constitutional: Reports: No Symptoms HEENT: Reports: No Symptoms Respiratory: Reports: Shortness of Breath Cardiovascular: Reports: Chest Pain (associated with the development of central chest pain). Denies: Blood Pressure Problem (history of present illness), Claudication, Dyspnea on Exertion, Edema, Lightheadedness, Orthopnea, Palpitations Endocrine: Reports: No Symptoms GI/Abdominal: Reports: No Symptoms : Reports: No Symptoms Musculoskeletal: Reports: No Symptoms Skin: Reports: No Symptoms Neurological: Reports: No Symptoms Psychiatric: Reports: No Symptoms Hematologic/Lymphatic: Reports: No Symptoms Immunologic: Reports: No Symptoms ED EXAM, GENERAL - Physical Exam Exam: See Below Exam Limited By: No Limitations General Appearance: Alert, WD/WN, No Apparent Distress Eye Exam: Bilateral Eye: Normal Inspection Head: Atraumatic, Normocephalic Neck: Normal Inspection, Supple, Non-Tender, Full Range of Motion. No: Carotid Bruit, Lymphadenopathy (L), Lymphadenopathy (R) Respiratory/Chest: No Respiratory Distress, Lungs Clear, Normal Breath Sounds, Chest Non-Tender Cardiovascular: Normal Peripheral Pulses, Regular Rate, Rhythm, No Edema, No Gallop, No JVD, No Murmur, No Rub Peripheral Pulses: 3+: Posterior Tibial (L), Posterior Tibial (R), Dorsalis Pedis (L), Dorsalis Pedis (R) GI/Abdominal: Normal Bowel Sounds, Soft, Non-Tender, No Organomegaly, No Abnormal Bruit, No Mass, Pelvis Stable Extremities: Normal Inspection, Normal Range of Motion, Non-Tender, No Pedal Edema Neurological: Alert, Oriented, CN II-XII Intact, Normal Cognition, Normal Gait Psychiatric: Normal Affect, Normal Mood Skin Exam: Warm, Dry, Intact, Normal Color, No Rash EKG INTERPRETATION EKG Date: 09/14/17 Time: 16:20 Rhythm: NSR Rate (Beats/Min): 75 [place]: Normal P-Wave: Present QRS: Other (left ventricular hypertrophy pattern.) ST-T: Depressed (there is a diffuse early repolarization pattern.slightly depressed ST segments of less than 0.5 mm in leads 3 and aVF.) QT: Normal EKG Interpretation Comments: borderline ECG Course - Vital Signs Last Recorded V/S: Last Vital Signs Temp 36.6 C 09/14/17 16:16 Pulse 78 09/14/17 16:16 Resp 18 09/14/17 16:16 BP 129/78 09/14/17 16:16 Pulse Ox 100 09/14/17 16:16 - Orders/Labs/Meds Orders: Active Orders 24 hr Category Date Time Status EKG Documentation Completion [RC] STAT Care 09/14/17 16:23 Active Chest 1V Frontal [CR] Stat Exams 09/14/17 16:23 Taken Sodium Chloride 0.9% [Normal Saline] 1,000 ml Med 09/14/17 16:30 Active IV ASDIRECTED Medication Orders Sodium Chloride (Normal Saline) 1,000 mls @ 100 mls/hr IV ASDIRECTED DANIEL Last Admin: 09/14/17 16:29 Dose: 100 mls/hr Labs: Laboratory Tests 09/14/17 09/14/17 09/14/17 Range/Units 16:38 16:38 16:38 WBC 9.56 H (4.23-9.07) K/mm3 RBC 4.58 L (4.63-6.08) M/mm3 Hgb 14.2 (13.7-17.5) gm/L Hct 43.4 (40.1-51.0) % MCV 94.8 H (79.0-92.2) fl MCH 31.0 (25.7-32.2) pg MCHC 32.7 (32.2-35.5) g/dl RDW Std Deviation 47.2 H (35.1-43.9) fL Plt Count 256 (163-337) K/mm3 MPV 8.9 L (9.4-12.3) fl Neutrophils % (Manual) 67 H (40-60) % Band Neutrophils % 0 (0-10) % Lymphocytes % (Manual) 29 (20-40) % Atypical Lymphs % 0 % Monocytes % (Manual) 4 (2-10) % Eosinophils % (Manual) 0 L (0.8-7.0) % Basophils % (Manual) 0 L (0.2-1.2) Toxic Granulation Few Platelet Estimate Adequate Plt Morphology Comment Normal Anisocytosis 1+ slight RBC Morph Comment Not Reportable PT 11.5 (9.5-12.1) SECONDS INR 1.06 Sodium 138 (136-145) mEq/L Potassium 3.4 L (3.5-5.1) mEq/L Chloride 104 (98-107) mEq/L Carbon Dioxide 27 (21-32) mEq/L Anion Gap 10.4 (5-15) BUN 16 (7-18) mg/dL Creatinine 1.0 (0.7-1.3) mg/dL Est Cr Clr Drug Dosing 74.00 mL/min Estimated GFR (MDRD) > 60 (>60) mL/min BUN/Creatinine Ratio 16.0 (14-18) Glucose 142 H (74-106) mg/dL Calcium 8.9 (8.5-10.1) mg/dL Magnesium 1.6 L (1.8-2.4) mg/dl Total Bilirubin 0.5 (0.2-1.0) mg/dL AST 23 (15-37) U/L ALT 30 (16-63) U/L Alkaline Phosphatase 37 L (46-116) U/L CK-MB (CK-2) 2.0 (0-3.6) ng/ml Troponin I < 0.017 (0.00-0.056) ng/mL NT-Pro-B Natriuret Pep (0-125) pg/mL Total Protein 6.9 (6.4-8.2) g/dl Albumin 4.0 (3.4-5.0) g/dl Globulin 2.9 gm/dL Albumin/Globulin Ratio 1.4 (1-2) TSH 3rd Generation 1.286 (0.358-3.74) uIU/mL 09/14/17 Range/Units 16:38 WBC (4.23-9.07) K/mm3 RBC (4.63-6.08) M/mm3 Hgb (13.7-17.5) gm/L Hct (40.1-51.0) % MCV (79.0-92.2) fl MCH (25.7-32.2) pg MCHC (32.2-35.5) g/dl RDW Std Deviation (35.1-43.9) fL Plt Count (163-337) K/mm3 MPV (9.4-12.3) fl Neutrophils % (Manual) (40-60) % Band Neutrophils % (0-10) % Lymphocytes % (Manual) (20-40) % Atypical Lymphs % % Monocytes % (Manual) (2-10) % Eosinophils % (Manual) (0.8-7.0) % Basophils % (Manual) (0.2-1.2) Toxic Granulation Platelet Estimate Plt Morphology Comment Anisocytosis RBC Morph Comment PT (9.5-12.1) SECONDS INR Sodium (136-145) mEq/L Potassium (3.5-5.1) mEq/L Chloride (98-107) mEq/L Carbon Dioxide (21-32) mEq/L Anion Gap (5-15) BUN (7-18) mg/dL Creatinine (0.7-1.3) mg/dL Est Cr Clr Drug Dosing mL/min Estimated GFR (MDRD) (>60) mL/min BUN/Creatinine Ratio (14-18) Glucose (74-106) mg/dL Calcium (8.5-10.1) mg/dL Magnesium (1.8-2.4) mg/dl Total Bilirubin (0.2-1.0) mg/dL AST (15-37) U/L ALT (16-63) U/L Alkaline Phosphatase (46-116) U/L CK-MB (CK-2) (0-3.6) ng/ml Troponin I (0.00-0.056) ng/mL NT-Pro-B Natriuret Pep 95 (0-125) pg/mL Total Protein (6.4-8.2) g/dl Albumin (3.4-5.0) g/dl Globulin gm/dL Albumin/Globulin Ratio (1-2) TSH 3rd Generation (0.358-3.74) uIU/mL Meds: Medications Generic Name Dose Route Start Last Admin Trade Name Freq PRN Reason Stop Dose Admin Sodium Chloride 1,000 mls @ 100 mls/hr 09/14/17 16:30 09/14/17 16:29 Normal Saline IV 100 mls/hr ASDIRECTED DANIEL Administration - Radiology Interpretation Free Text/Narrative:: 2-year-old male presents to the ED with sudden onset of palpitations and central chest pain starting about an hour prior to arrival in the ED. He states the pain mimicked his previous heart attack pain.Patient had a stent placed nearly a year ago I believe in the right coronary artery. He did have an associated myocardial infarction. He continues to smoke cigarettes and has changed his chewing tobacco recently which may have a a more potent nicotine level in it.He does not drink any energy drinks or take any decongestants or stimulants. He has stopped taking alcohol 7 years ago.At the time he was seen in the ED his heart rate was in the 70s and 80s and is sinus with some minimal ST segment depression leads 2 and 3. There is also a diffuse early repolarization pattern. He his chest pain had essentially dissipated although he was aware of the occasional skipping heart beat feeling in his chest.he does not appear to be anxious. Examination reveals lungs to be clear. Plan 1 view chest x-ray routine labs to include serum magnesium and TSH levels. - Re-Assessments/Exams Free Text/Narrative Re-Assessment/Exam: 09/14/17 16:55 Portable chest x-rayyperinflated lung arciniega are clear. Cardiac silhouette and great vessels. No pneumothorax 09/14/17 17:22 Labs are back showing a total white count of 9.56. Differential 67% neutrophils with no bands. Hemoglobin is 14.2 with hematocrit of 43.4. Platelet count is 256,000. PT is 11.5 with an INR of 1.06. Sodium is 138 with a potassium slightly low at 3.4. Chloride is 104 with a bicarbonate of 27. Anion gap is 10.4. BUN is 16 with a creatinine of 1.0. Glucose is 142. Calcium is 8.9. Magnesium is slightly low at 1.6. Bilirubin is 0.5. Liver function otherwise normal. CK-MB fraction is 2.0 with a troponin I of less than 0.017. BNP is 95. TSH is normal at 1.286 09/14/17 17:34I had him up standing in the room and his blood pressure and heart rate never changed one bit. He remained in sinus rhythm hasn't had much to eat or drink today. He has had a couple drinks of coffee that perhaps the caffeine caused his heart to race. I could find no other abnormalities. He is running out of medications the plan will be to discontinue Plavix this month as it's been one year since his stent was placed and had no other significant coronary disease at the time of the angiogram. He will need to continue his cholesterol-lowering agent and his blood pressure medicine. I will also place him on Slow-Mag 1 tablet daily for t 10 days to make sure that his magnesium level comes back up. Patient is been avoiding eating meat because of dietitian restrictions. Advised that he certainly can eat meat but he needs to cut the fat off. Departure - Departure Time of Disposition: 17:36 Disposition: Home, Self-Care 01 Reason for Transfer *Q: Other Condition: Good Clinical Impression: Palpitations, Hypomagnesemia Prescriptions: Magnesium Chloride [Slow-Mag] 71.5 mg PO DAILY #10 tablet.dr Pérezuvastatin [Crestor] 5 mg PO DAILY #30 tab Forms: ED Department Discharge Additional Instructions: Evaluation the emergency room today in regards to development of rapid irregular bleeding heart suddenly while seated today. This produced some central chest discomfort and a sense of shortness of breath. Symptoms started about an hour before arrival in the ED. Upon arrival in the ED her heart rate had returned to normal but the paramedics had identified a heart rate as high as 135/m. This is not a dangerous rate as often heart rate will easily go to 135 -1 60 bpm while running for example.complete laboratory workup was carried out and no evidence of heart related illness was identified. Rate stayed in the 70s and 80s while you were in the emergency department. Blood pressure remained well within the normal range. At this point time I would suggest continue Crestor 5 mg daily as discussed with her e marketing specialist Plavix is to be discontinuedby the end of this monthsince you been on it for one year since you had your stent placed. Must continue aspirin 81 mg a day. The only finding wehad today was low magnesium level at 1.6. Therefore I have given you a magnesium tablet in the ED and you are to use Slow-Mag 1 tablet once daily for 10 days to make sure your magnesium level comes back up as it's important for heart function. You must resume eating meat again and just cut the fat off as most of our magnesium comes in her diet from meat intake.at some point time he needed follow-up with a physician to have your cholesterol levels rechecked and cardiology consultation as they usually like to do a stress test on you 1 year after stent placement.therefore no identifiable friable cause for your palpitations were identified today. To stay well hydrated and I would suggest trying to cut back on her nicotine intake as it certainly is a stimulant to get the heart rate up. Caffeine intake of course can do this as well. - My Orders Last 24 Hours: My Active Orders 09/14/17 16:23 EKG Documentation Completion [RC] STAT Chest 1V Frontal [CR] Stat 09/14/17 16:30 Sodium Chloride 0.9% [Normal Saline] 1,000 ml IV ASDIRECTED - Assessment/Plan Last 24 Hours: My Active Orders 09/14/17 16:23 EKG Documentation Completion [RC] STAT Chest 1V Frontal [CR] Stat 09/14/17 16:30 Sodium Chloride 0.9% [Normal Saline] 1,000 ml IV ASDIRECTED
[2017-09-14] MEDS ORDERED: Magnesium Oxide 400 MG Tab PO ONE (17:34)
[2017-09-14 17:58] VITALS: BP 117/80
--- NOTE | 2017-09-15 07:02 | CR ---
Chest: Portable view of the chest was obtained. Comparison: Prior chest x-ray of 05/19/17. Heart size and mediastinum are within normal limits. Lungs are hyperinflated but otherwise clear. Bony structures are grossly intact. Impression: 1. Emphysematous change. Nothing acute is appreciated on portable chest x-ray. Diagnostic code #2
== END 2017-09-14 17:55 | disposition home or self-care (01) ==
LOC: JD.ED 16:12
DX: R00.2 Palpitations (principal); E83.42 Hypomagnesemia; I25.10 Atherosclerotic heart disease of native coronary artery without angina pectoris; E78.00 Pure hypercholesterolemia, unspecified; I25.2 Old myocardial infarction; Z79.82 Long term (current) use of aspirin; Z79.899 Other long term (current) drug therapy; Z88.0 Allergy status to penicillin; Z95.5 Presence of coronary angioplasty implant and graft; Z79.01 Long term (current) use of anticoagulants
CPT/HCPCS: 36415; 71045; 80053; 82553; 83735; 83880; 84443; 84484; 85007; 85027; 85610; 93005; 96360; 99285; A9270; J7040; 93010; 99284-25

== ENCOUNTER 2024-01-11 17:24 | Emergency (ER) | payer BC ==
[2024-01-11 18:16] VITALS: BP 145/91; PULSE 67
== END 2024-01-11 18:57 | disposition home or self-care (01) ==
LOC: JD.ED 17:24
DX: K04.7 Periapical abscess without sinus (principal); K02.9 Dental caries, unspecified; I25.10 Atherosclerotic heart disease of native coronary artery without angina pectoris; I25.2 Old myocardial infarction; F17.210 Nicotine dependence, cigarettes, uncomplicated; Z95.5 Presence of coronary angioplasty implant and graft; Z88.0 Allergy status to penicillin
CPT/HCPCS: 99282; 99283